=== PATIENT | female | born 1975 | race Caucasian/White ===

== ENCOUNTER 2018-10-07 08:38 | Inpatient (IN) | payer OTHER ==
[2018-10-07] MEDS: SOD CHLORIDE 0.9% 1,000 ML IV ×3 (08:56→15:57)
[2018-10-07] MEDS: SOD CHLORIDE 0.9% 500 ML IV (08:58)
[2018-10-07 09:29] LABS: ADD MAN DIFF? NO
[2018-10-07 09:31] LABS: WHITE BLOOD COUNT 20.4 10^3/ul (4.8-10.8)
[2018-10-07 09:31] LABS: BASOPHIL # 0.1 10^3/ul (0.0-0.1); BASOPHILS % 0.3 % (0.0-2.0); HEMATOCRIT 49.1 % (37.0-47.0); HEMOGLOBIN 14.4 g/dl (12.0-16.0); LYMPHOCYTES # 1.6 10^3/ul (0.8-2.9); LYMPHOCYTES % 7.8 % (15.0-51.0); MEAN CORPUSCULAR HEMOGLOBIN 29.2 pg (29.0-33.0); MEAN CORPUSCULAR HGB CONC 29.3 g/dl (32.0-37.0); MEAN CORPUSCULAR VOLUME 99.6 fl (82.0-101.0); MEAN PLATELET VOLUME 11.3 fl (7.4-10.4); MONOCYTE # 0.5 10^3/ul (0.3-0.9); MONOCYTES % 2.3 % (0.0-11.0); NEUTROPHIL # 18.1 10^3/ul (1.6-7.5); NEUTROPHILS % 88.9 % (39.0-77.0); PLATELET COUNT 431 10^3/UL (140-415); RED BLOOD COUNT 4.93 10^6/ul (4.20-5.40); RED CELL DISTRIBUTION WIDTH 12.4 % (11.5-14.5)
[2018-10-07 09:37] LABS: MODE ROOM AIR; MetHgb Venous 0.3 %; Sample Type Blood venous; Site VENOUS LINE; Venous COHb 0.4 %; Venous Fraction OxyHgb 86.7 %; Venous Oxygen Sat 87.3 mmHG (55.0-75.0); Venous Total Hemglobin 14.5 g/dl
[2018-10-07] MEDS ORDERED: DEXTROSE 10 %/0.45 % NACL 1,000 ML IV (09:38)
[2018-10-07] MEDS ORDERED: NS + KCL 40 MEQ 1,000 ML IV (09:38)
[2018-10-07] MEDS ORDERED: D10/0.45% NACL + KCL 40 MEQ 1,000 ML IV (09:38)
[2018-10-07 09:49] LABS: ANION GAP 27 (5-13); BLOOD UREA NITROGEN 22 mg/dl (7-20); CALCIUM 10.3 mg/dl (8.4-10.2); CHLORIDE 104 mmol/L (97-110); CREATININE 1.03 mg/dl (0.44-1.00); Estimated GFR 59 mL/min (>60); PHOSPHORUS 10.1 mg/dl (2.5-4.9); SODIUM 137 mmol/L (135-144)
[2018-10-07 09:57] LABS: CARBON DIOXIDE 6 mmol/L (21-31); GLUCOSE 774 mg/dl (70-220); POTASSIUM 7.4 mmol/L (3.5-5.1)
[2018-10-07] MEDS ORDERED: DEXTROSE 50% 50 ML SYRINGE IV ×7 (10:00→22:30)
[2018-10-07] MEDS ORDERED: INSULIN REGULAR, HUMAN 100 UNIT in SOD CHLORIDE 0.9% 100 ML IV (10:00)
[2018-10-07] MEDS: LACTATED RINGER'S 590 ML IV (10:22)
[2018-10-07] MEDS ORDERED: ONDANSETRON 4 MG INJ IV (10:30)
[2018-10-07] MEDS ORDERED: ACETAMINOPHEN 325 MG TAB PO (10:30)
[2018-10-07] MEDS: NA BICARBONATE 8.4% 50 ML SYG IV ×2 (10:48→13:50)
[2018-10-07] MEDS: CA CHLORIDE 10% 10 ML SYRINGE IV (10:51)
[2018-10-07 11:15] LABS: ADD UMIC YES; UR ASCORBIC ACID NEGATIVE (NEGATIVE); UR BACTERIA FEW /HPF (NONE SEEN); UR BILIRUBIN (Dip) NEGATIVE (NEGATIVE); UR BLOOD (Dip) 1+ mg/dL (NEGATIVE); UR CLARITY CLEAR (CLEAR); UR COLOR STRAW (YELLOW); UR GLUCOSE (Dip) 3+ mg/dL (NEGATIVE); UR KETONES (Dip) 2+ mg/dL (NEGATIVE); UR LEUKOCYTE ESTERASE (Dip) NEGATIVE Leu/ul (NEGATIVE); UR MUCUS FEW /HPF (NONE SEEN); UR NITRITE (Dip) NEGATIVE (NEGATIVE); UR RBC 0 /HPF (0-5); UR SPECIFIC GRAVITY (Dip) 1.021 (1.003-1.030); UR TOTAL PROTEIN (Dip) NEGATIVE (NEGATIVE); UR UROBILINOGEN (Dip) NEGATIVE (NEGATIVE); UR WBC 1 /HPF (0-5)
[2018-10-07] MEDS: CEFEPIME 1GM/50 ML (PMX) 50 ML IVPB (11:15)
[2018-10-07 11:21] LABS: HEMOGLOBIN A1C 11.3 % (0-5.9)
[2018-10-07] MEDS: ALBUTEROL 0.5% (NEB) 2.5 MG/0.5 ML AMP INH (11:23)
[2018-10-07] MEDS ORDERED: MAGNESIUM HYDROXIDE 30ML CUP PO (11:30)
[2018-10-07] MEDS ORDERED: HYDROCODONE/APAP (5/325) TAB PO (11:30)
[2018-10-07] MEDS ORDERED: DOCUSATE SODIUM 100 MG CAP PO (11:30)
[2018-10-07] MEDS: ACCU-CHEK XX ×13 (11:30→22:30)
[2018-10-07 11:45] LABS: BARBITURATES Negative (NEGATIVE); BENZODIAZEPINES Negative (NEGATIVE); CANNABINOIDS Negative (NEGATIVE); COCAINE Negative (NEGATIVE); OPIATES Negative (NEGATIVE)
[2018-10-07 11:48] LABS: AMPHETAMINE/METHAMPHETAMINE Positive (NEGATIVE)
[2018-10-07] MEDS: VANCOMYCIN 1 GM (PMX) 250 ML IVPB (11:58)
[2018-10-07] MEDS ORDERED: PIPER-TAZO 3.375 GM IV (PMX) 100 ML IVPB (12:00)
[2018-10-07 12:16] LABS: BLOOD UREA NITROGEN 22 mg/dl (7-20); CALCIUM 11.3 mg/dl (8.4-10.2); CHLORIDE 110 mmol/L (97-110); CREATININE 1.06 mg/dl (0.44-1.00); Estimated GFR 57 mL/min (>60); MAGNESIUM 2.8 mg/dl (1.7-2.5); PHOSPHORUS 10.6 mg/dl (2.5-4.9); SODIUM 140 mmol/L (135-144)
[2018-10-07] MEDS: INSULIN REGULAR, HUMAN 100 UNIT in SOD CHLORIDE 0.9% 100 ML IV (12:18)
[2018-10-07 12:29] LABS: MODE ROOM AIR; MetHgb Venous 0.4 %; Sample Type Blood venous; Site VENOUS LINE; Venous COHb 0.3 %; Venous Fraction OxyHgb 92.5 %; Venous Oxygen Sat 93.2 mmHG (55.0-75.0); Venous Total Hemglobin 13.6 g/dl
[2018-10-07 12:30] LABS: ANION GAP 25 (5-13)
[2018-10-07 12:33] LABS: POTASSIUM 7.3 mmol/L (3.5-5.1)
[2018-10-07 12:34] LABS: CARBON DIOXIDE < 5 mmol/L (21-31); GLUCOSE 775 mg/dl (70-220)
[2018-10-07] MEDS: LACTATED RINGER'S 500 ML IV (14:00)
[2018-10-07] MEDS ORDERED: MIDAZOLAM 1 MG/ML 2 ML INJ (14:07)
[2018-10-07] MEDS ORDERED: SODIUM BICARBONATE (IV ADD) 50 MEQ in DEXTROSE 5% 950 ML IV (14:30)
[2018-10-07] MEDS: INSULIN REGULAR, HUMAN 100 UNIT in SOD CHLORIDE 0.9% 99 ML IV (15:09)
[2018-10-07] MEDS: FENTAnyl 1,000 MCG in SOD CHLORIDE 0.9% 80 ML IV ×2 (15:18→23:06)
[2018-10-07] MEDS: PROPOFOL 100 ML IV ×3 (15:32→21:19)
[2018-10-07] MEDS: MIDAZOLAM 1 MG/ML 2 ML INJ IV ×2 (15:33→16:45)
[2018-10-07] MEDS: Please discontinue ALL previous duplicate IV Fluid orders for DKA from ER XX (15:33)
[2018-10-07] MEDS: LACTATED RINGER'S 1,000 ML IV ×2 (15:35→16:53)
[2018-10-07 15:36] LABS: ANION GAP 21 (5-13); BLOOD UREA NITROGEN 25 mg/dl (7-20); CALCIUM 9.9 mg/dl (8.4-10.2); CHLORIDE 115 mmol/L (97-110); CREATININE 1.13 mg/dl (0.44-1.00); Estimated GFR 53 mL/min (>60); MAGNESIUM 2.7 mg/dl (1.7-2.5); PHOSPHORUS 8.2 mg/dl (2.5-4.9); SODIUM 143 mmol/L (135-144)
[2018-10-07 15:40] LABS: LACTIC ACID 4.5 mmol/L (0.5-2.0)
[2018-10-07 15:47] LABS: CARBON DIOXIDE 7 mmol/L (21-31); GLUCOSE 634 mg/dl (70-220)
[2018-10-07 16:06] LABS: THYROID STIMULATING HORMONE 0.852 MIU/L (0.465-4.680)
[2018-10-07] MEDS: SODIUM BICARBONATE (IV ADD) 50 MEQ in DEXTROSE 5% 1,000 ML IV (16:12)
[2018-10-07] MEDS: MIDAZOLAM (DRIP) 50 mg/50 mL 50 ML IV ×2 (16:43→20:47)
[2018-10-07 17:25] LABS: ANION GAP 14 (5-13); BLOOD UREA NITROGEN 24 mg/dl (7-20); CALCIUM 9.5 mg/dl (8.4-10.2); CARBON DIOXIDE 11 mmol/L (21-31); CHLORIDE 118 mmol/L (97-110); CREATININE 1.03 mg/dl (0.44-1.00); Estimated GFR 59 mL/min (>60); MAGNESIUM 2.4 mg/dl (1.7-2.5); PHOSPHORUS 4.2 mg/dl (2.5-4.9); POTASSIUM 5.2 mmol/L (3.5-5.1); SODIUM 143 mmol/L (135-144)
[2018-10-07] MEDS ORDERED: METOPROLOL 5 MG INJ IV (17:30)
[2018-10-07 17:35] LABS: LACTIC ACID 3.8 mmol/L (0.5-2.0)
[2018-10-07 17:39] LABS: GLUCOSE 469 mg/dl (70-220)
[2018-10-07 17:53] LABS: AADO2 Venous 218.4 mmHg; MODE VENT - AC; Site VENOUS LINE
[2018-10-07 18:16] LABS: MODE VENT - BIPHASIC; MetHgb Venous 0.3 %; Sample Type Blood venous; Site VENOUS LINE; Venous COHb 0.3 %; Venous Fraction OxyHgb 93.2 %; Venous Oxygen Sat 93.8 mmHG (55.0-75.0); Venous Total Hemglobin 11.7 g/dl
[2018-10-07] MEDS: NS + KCL 30 MEQ 1,000 ML IV (18:16)
[2018-10-07] MEDS: SODIUM BICARBONATE (IV ADD) 150 MEQ in DEXTROSE 5% 1,000 ML IV (19:02)
[2018-10-07 20:50] LABS: MODE VENT - AC/VC+; MetHgb Venous 0.5 %; Sample Type Blood venous; Site VENOUS LINE; Venous COHb 0.3 %; Venous Fraction OxyHgb 90.4 %; Venous Oxygen Sat 91.1 mmHG (55.0-75.0); Venous Total Hemglobin 11.4 g/dl
[2018-10-07] MEDS: D10/0.45% NACL + KCL 30 MEQ 1,000 ML IV (21:14)
[2018-10-07 21:35] LABS: ANION GAP 4 (5-13); BLOOD UREA NITROGEN 22 mg/dl (7-20); CALCIUM 9.3 mg/dl (8.4-10.2); CARBON DIOXIDE 20 mmol/L (21-31); CHLORIDE 119 mmol/L (97-110); CREATININE 0.83 mg/dl (0.44-1.00); Estimated GFR > 60 mL/min (>60); GLUCOSE 253 mg/dl (70-220); MAGNESIUM 2.2 mg/dl (1.7-2.5); POTASSIUM 4.2 mmol/L (3.5-5.1); SODIUM 143 mmol/L (135-144)
[2018-10-07] MEDS ORDERED: GLUCAGON 1 MG INJ IM (22:30)
[2018-10-07] MEDS ORDERED: GLUCOSE GEL 15 GRAM TUBE PO ×2 (22:30)
[2018-10-07] MEDS ORDERED: GLUCOSE GEL 15 GRAM TUBE BUCCAL (22:30)
[2018-10-07] MEDS: INSULIN HUMAN REGULAR 100 UNIT in SOD CHLORIDE 0.9% 99 ML IV (23:05)
[2018-10-07] MEDS: DEXTROSE 5%-0.45% NACL 1,000 ML IV (23:11)
[2018-10-08] MEDS: ACCU-CHEK XX ×24 (01:04→23:06)
[2018-10-08] MEDS: PROPOFOL 100 ML IV ×4 (02:26→20:00)
[2018-10-08] MEDS: MIDAZOLAM (DRIP) 50 mg/50 mL 50 ML IV (02:34)
[2018-10-08 03:58] LABS: ADD UMIC NO; UR ASCORBIC ACID NEGATIVE (NEGATIVE); UR BILIRUBIN (Dip) NEGATIVE (NEGATIVE); UR BLOOD (Dip) NEGATIVE (NEGATIVE); UR CLARITY SLIGHTLY CLOUDY (CLEAR); UR COLOR YELLOW (YELLOW); UR GLUCOSE (Dip) 3+ mg/dL (NEGATIVE); UR KETONES (Dip) 1+ mg/dL (NEGATIVE); UR LEUKOCYTE ESTERASE (Dip) NEGATIVE Leu/ul (NEGATIVE); UR NITRITE (Dip) NEGATIVE (NEGATIVE); UR RBC 1 /HPF (0-5); UR SPECIFIC GRAVITY (Dip) 1.017 (1.003-1.030); UR TOTAL PROTEIN (Dip) NEGATIVE (NEGATIVE); UR UROBILINOGEN (Dip) NEGATIVE (NEGATIVE); UR WBC 2 /HPF (0-5)
[2018-10-08 04:12] LABS: ADD MAN DIFF? NO
[2018-10-08 04:14] LABS: WHITE BLOOD COUNT 16.4 10^3/ul (4.8-10.8)
[2018-10-08 04:14] LABS: BASOPHILS % 0.2 % (0.0-2.0); EOSINOPHILS % 0.1 % (0.0-7.0); HEMATOCRIT 30.9 % (37.0-47.0); HEMOGLOBIN 10.3 g/dl (12.0-16.0); LYMPHOCYTES # 2.8 10^3/ul (0.8-2.9); LYMPHOCYTES % 17.2 % (15.0-51.0); MEAN CORPUSCULAR HEMOGLOBIN 29.6 pg (29.0-33.0); MEAN CORPUSCULAR HGB CONC 33.3 g/dl (32.0-37.0); MEAN CORPUSCULAR VOLUME 88.8 fl (82.0-101.0); MEAN PLATELET VOLUME 10.5 fl (7.4-10.4); MONOCYTE # 1.4 10^3/ul (0.3-0.9); MONOCYTES % 8.5 % (0.0-11.0); NEUTROPHIL # 12.1 10^3/ul (1.6-7.5); NEUTROPHILS % 73.5 % (39.0-77.0); PLATELET COUNT 249 10^3/UL (140-415); RED BLOOD COUNT 3.48 10^6/ul (4.20-5.40); RED CELL DISTRIBUTION WIDTH 12.2 % (11.5-14.5)
[2018-10-08 04:30] LABS: LACTIC ACID 1.1 mmol/L (0.5-2.0)
[2018-10-08 04:33] LABS: ANION GAP -1 (5-13); BLOOD UREA NITROGEN 21 mg/dl (7-20); CALCIUM 8.9 mg/dl (8.4-10.2); CARBON DIOXIDE 24 mmol/L (21-31); CHLORIDE 122 mmol/L (97-110); CREATININE 0.79 mg/dl (0.44-1.00); Estimated GFR > 60 mL/min (>60); GLUCOSE 162 mg/dl (70-220); PHOSPHORUS 2.5 mg/dl (2.5-4.9); POTASSIUM 3.5 mmol/L (3.5-5.1); SODIUM 145 mmol/L (135-144)
[2018-10-08] MEDS: SODIUM BICARBONATE (IV ADD) 150 MEQ in DEXTROSE 5% 1,000 ML IV (06:20)
[2018-10-08] MEDS: PANTOPRAZOLE 40 MG INJ IV (06:36)
[2018-10-08 08:11] LABS: Allen Test ACCEPTAB; Arterial Base Excess -1.4 mmol/L (-3.0-3); Arterial Blood Gas Oxygen Sat 98.9 mmHG (95.0-98.0); Arterial COHb 0.3 % (0.0-3.0); Arterial Fraction of Oxyhgb 98.3 % (93.0-99.0); Arterial MetHb 0.3 % (0.0-1.5); Arterial pCO2 28.3 mmhg (35-45); MODE VENT - AC/VC+; Site Right Radial
[2018-10-08 09:47] LABS: ANION GAP 4 (5-13); BLOOD UREA NITROGEN 21 mg/dl (7-20); CARBON DIOXIDE 23 mmol/L (21-31); CHLORIDE 118 mmol/L (97-110); CREATININE 0.84 mg/dl (0.44-1.00); Estimated GFR > 60 mL/min (>60); GLUCOSE 120 mg/dl (70-220); MAGNESIUM 2.1 mg/dl (1.7-2.5); PHOSPHORUS 2.7 mg/dl (2.5-4.9); POTASSIUM 3.8 mmol/L (3.5-5.1); SODIUM 145 mmol/L (135-144)
[2018-10-08] MEDS: ENOXAPARIN 40 MG/0.4 ML SYG SC (09:52)
[2018-10-08] MEDS: FENTAnyl 1,000 MCG in SOD CHLORIDE 0.9% 80 ML IV (09:58)
[2018-10-08] MEDS: DEXTROSE 5%-0.45% NACL 1,000 ML IV (12:47)
[2018-10-08] MEDS: ACETAMINOPHEN 650MG/20.3ML CUP PO (17:40)
[2018-10-08] MEDS: DEXTROSE 50% 50 ML SYRINGE IV ×2 (19:42→20:25)
[2018-10-09] MEDS: ACCU-CHEK XX ×24 (00:22→23:51)
[2018-10-09] MEDS: DEXTROSE 5%-0.45% NACL 1,000 ML IV ×2 (01:16→15:09)
[2018-10-09] MEDS: INSULIN HUMAN REGULAR 100 UNIT in SOD CHLORIDE 0.9% 99 ML IV (01:25)
[2018-10-09] MEDS: PROPOFOL 100 ML IV ×3 (01:37→21:56)
[2018-10-09] MEDS: MIDAZOLAM (DRIP) 50 mg/50 mL 50 ML IV (03:04)
[2018-10-09] MEDS: FENTAnyl 1,000 MCG in SOD CHLORIDE 0.9% 80 ML IV ×2 (03:10→18:26)
[2018-10-09 05:29] LABS: ADD MAN DIFF? NO
[2018-10-09 05:41] LABS: BASOPHILS % 0.2 % (0.0-2.0); EOSINOPHILS % 0.2 % (0.0-7.0); HEMOGLOBIN 9.8 g/dl (12.0-16.0); LYMPHOCYTES % 16.4 % (15.0-51.0); MEAN CORPUSCULAR HEMOGLOBIN 29.7 pg (29.0-33.0); MEAN CORPUSCULAR HGB CONC 32.7 g/dl (32.0-37.0); MEAN CORPUSCULAR VOLUME 90.9 fl (82.0-101.0); MEAN PLATELET VOLUME 11.3 fl (7.4-10.4); MONOCYTE # 0.6 10^3/ul (0.3-0.9); MONOCYTES % 4.9 % (0.0-11.0); NEUTROPHIL # 9.5 10^3/ul (1.6-7.5); PLATELET COUNT 164 10^3/UL (140-415)
[2018-10-09 05:41] LABS: WHITE BLOOD COUNT 12.2 10^3/ul (4.8-10.8)
[2018-10-09] MEDS: PANTOPRAZOLE 40 MG INJ IV (06:11)
[2018-10-09 06:16] LABS: ALANINE AMINOTRANSFERASE 189 IU/L (13-69); ALBUMIN 2.4 g/dl (3.3-4.9); ALBUMIN/GLOBULIN RATIO 0.96; ALKALINE PHOSPHATASE 113 IU/L (42-121); ANION GAP 0 (5-13); ASPARTATE AMINO TRANSFERASE 721 IU/L (15-46); BILIRUBIN,INDIRECT 0.2 mg/dl (0-1.1); BILIRUBIN,TOTAL 0.2 mg/dl (0.2-1.3); BLOOD UREA NITROGEN 14 mg/dl (7-20); CALCIUM 8.1 mg/dl (8.4-10.2); CARBON DIOXIDE 26 mmol/L (21-31); CHLORIDE 116 mmol/L (97-110); CREATININE 0.62 mg/dl (0.44-1.00); Estimated GFR > 60 mL/min (>60); GLUCOSE 181 mg/dl (70-220); MAGNESIUM 1.8 mg/dl (1.7-2.5); SODIUM 142 mmol/L (135-144); TOTAL PROTEIN 4.9 g/dl (6.1-8.1)
[2018-10-09 06:41] LABS: POTASSIUM 2.9 mmol/L (3.5-5.1)
[2018-10-09] MEDS: MAGNESIUM OXIDE 400 MG TAB NGT (06:53)
[2018-10-09] MEDS: POTASSIUM CHLORIDE 50 ML IVPB ×2 (06:54→09:31)
[2018-10-09] MEDS: POTASSIUM CHLORIDE 20 MEQ POWDER FOR ORAL SOLN NGT (06:54)
[2018-10-09 07:22] LABS: AADO2 Arterial 53.2 mmHg (7.0-24.0); Allen Test ACCEPTAB; Arterial Base Excess 0.1 mmol/L (-3.0-3); Arterial Blood Gas Oxygen Sat 97.8 mmHG (95.0-98.0); Arterial COHb 0.3 % (0.0-3.0); Arterial Fraction of Oxyhgb 97.2 % (93.0-99.0); Arterial HCO3 25.3 mmol/L (22.0-26.0); Arterial MetHb 0.3 % (0.0-1.5); Arterial pCO2 43.6 mmhg (35-45); MODE VENT - AC; Site Right Radial
[2018-10-09] MEDS: ENOXAPARIN 40 MG/0.4 ML SYG SC (08:40)
[2018-10-09] MEDS ORDERED: DEXMEDETOMIDINE HCL 200 MCG in SOD CHLORIDE 0.9% 48 ML IV (10:30)
[2018-10-09] MEDS: DEXMEDETOMIDINE HCL 200 MCG in SOD CHLORIDE 0.9% 48 ML IV ×2 (11:04→20:35)
[2018-10-09 12:01] LABS: HAAIG REFLEX REFLEX FILED
[2018-10-09 12:22] LABS: BLOOD UREA NITROGEN 12 mg/dl (7-20); CALCIUM 8.1 mg/dl (8.4-10.2); CREATININE 0.54 mg/dl (0.44-1.00); Estimated GFR > 60 mL/min (>60); GLUCOSE 209 mg/dl (70-220); MAGNESIUM 1.8 mg/dl (1.7-2.5); POTASSIUM 4.6 mmol/L (3.5-5.1); SODIUM 139 mmol/L (135-144)
[2018-10-09 12:32] LABS: ANION GAP 4 (5-13); CARBON DIOXIDE 23 mmol/L (21-31); CHLORIDE 112 mmol/L (97-110)
[2018-10-09 12:53] LABS: HEPATITIS B SURFACE ANTIGEN NEGATIVE (NEGATIVE)
[2018-10-09 13:11] LABS: HEPATITIS B CORE ANTIBODY NEGATIVE (NEGATIVE); HEPATITIS C VIRAL ANTIBODY NEGATIVE (NEGATIVE)
[2018-10-09] MEDS: ACETAMINOPHEN 650MG/20.3ML CUP PO (15:58)
[2018-10-09] MEDS ORDERED: VANCOMYCIN IV PER PHARMACY XX (16:00)
[2018-10-09] MEDS: MAGNESIUM SULFATE 2 GM/50 ML 50 ML IVPB (16:12)
[2018-10-09] MEDS: PIPER-TAZO 3.375 GM IV (PMX) 100 ML IVPB ×2 (16:17→21:56)
[2018-10-09] MEDS: VANCOMYCIN HCL 1.25 GM in SOD CHLORIDE 0.9% 250 ML IVPB (17:52)
[2018-10-09] MEDS: BALSAM PERU/CASTOR OIL 60 GM TUBE TOP (21:00)
[2018-10-10] MEDS: ACCU-CHEK XX ×24 (00:52→23:51)
[2018-10-10] MEDS: DEXMEDETOMIDINE HCL 200 MCG in SOD CHLORIDE 0.9% 48 ML IV ×3 (00:59→19:49)
[2018-10-10] MEDS: DEXTROSE 5%-0.45% NACL 1,000 ML IV ×2 (03:22→17:15)
[2018-10-10] MEDS: PANTOPRAZOLE 40 MG INJ IV (05:23)
[2018-10-10] MEDS: FENTAnyl 1,000 MCG in SOD CHLORIDE 0.9% 80 ML IV ×2 (05:23→23:50)
[2018-10-10] MEDS: VANCOMYCIN HCL 1.25 GM in SOD CHLORIDE 0.9% 250 ML IVPB ×2 (05:23→17:15)
[2018-10-10 05:29] LABS: ADD MAN DIFF? NO
[2018-10-10 05:37] LABS: WHITE BLOOD COUNT 8.8 10^3/ul (4.8-10.8)
[2018-10-10 05:37] LABS: BASOPHILS % 0.2 % (0.0-2.0); EOSINOPHILS % 0.1 % (0.0-7.0); HEMATOCRIT 29.4 % (37.0-47.0); HEMOGLOBIN 9.4 g/dl (12.0-16.0); LYMPHOCYTES # 1.7 10^3/ul (0.8-2.9); LYMPHOCYTES % 19.4 % (15.0-51.0); MEAN CORPUSCULAR HEMOGLOBIN 29.7 pg (29.0-33.0); MEAN CORPUSCULAR VOLUME 92.7 fl (82.0-101.0); MEAN PLATELET VOLUME 11.4 fl (7.4-10.4); MONOCYTE # 0.5 10^3/ul (0.3-0.9); MONOCYTES % 6.1 % (0.0-11.0); NEUTROPHIL # 6.4 10^3/ul (1.6-7.5); NEUTROPHILS % 73.5 % (39.0-77.0); PLATELET COUNT 113 10^3/UL (140-415); RED BLOOD COUNT 3.17 10^6/ul (4.20-5.40); RED CELL DISTRIBUTION WIDTH 12.8 % (11.5-14.5)
[2018-10-10] MEDS: INSULIN HUMAN REGULAR 100 UNIT in SOD CHLORIDE 0.9% 99 ML IV (05:47)
[2018-10-10 05:50] LABS: ALANINE AMINOTRANSFERASE 844 IU/L (13-69); ALBUMIN 2.5 g/dl (3.3-4.9); ALBUMIN/GLOBULIN RATIO 0.92; ALKALINE PHOSPHATASE 182 IU/L (42-121); ANION GAP 5 (5-13); BILIRUBIN,INDIRECT 0.7 mg/dl (0-1.1); BILIRUBIN,TOTAL 1.4 mg/dl (0.2-1.3); BLOOD UREA NITROGEN 16 mg/dl (7-20); CALCIUM 7.8 mg/dl (8.4-10.2); CARBON DIOXIDE 27 mmol/L (21-31); CHLORIDE 108 mmol/L (97-110); CREATININE 0.65 mg/dl (0.44-1.00); Estimated GFR > 60 mL/min (>60); GLUCOSE 130 mg/dl (70-220); MAGNESIUM 2.8 mg/dl (1.7-2.5); POTASSIUM 3.9 mmol/L (3.5-5.1); SODIUM 140 mmol/L (135-144); TOTAL PROTEIN 5.2 g/dl (6.1-8.1)
[2018-10-10 06:59] LABS: ASPARTATE AMINO TRANSFERASE 1899 IU/L (15-46)
[2018-10-10] MEDS: PIPER-TAZO 3.375 GM IV (PMX) 100 ML IVPB ×3 (07:55→21:01)
[2018-10-10] MEDS: ENOXAPARIN 40 MG/0.4 ML SYG SC (08:54)
[2018-10-10] MEDS: BALSAM PERU/CASTOR OIL 60 GM TUBE TOP ×2 (08:54→20:57)
[2018-10-10] MEDS: LACTATED RINGER'S 500 ML IV (15:01)
[2018-10-11] MEDS: INSULIN HUMAN REGULAR 100 UNIT in SOD CHLORIDE 0.9% 99 ML IV (00:01)
[2018-10-11] MEDS: ACCU-CHEK XX ×15 (00:51→15:14)
[2018-10-11] MEDS: DEXMEDETOMIDINE HCL 200 MCG in SOD CHLORIDE 0.9% 48 ML IV ×2 (01:39→08:05)
[2018-10-11] MEDS: DEXTROSE 5%-0.45% NACL 1,000 ML IV ×3 (01:39→22:29)
[2018-10-11 04:13] LABS: ADD MAN DIFF? NO
[2018-10-11 04:16] LABS: BASOPHILS % 0.3 % (0.0-2.0); EOSINOPHILS # 0.1 10^3/ul (0.0-0.5); EOSINOPHILS % 0.8 % (0.0-7.0); HEMATOCRIT 27.9 % (37.0-47.0); HEMOGLOBIN 8.9 g/dl (12.0-16.0); LYMPHOCYTES % 19.9 % (15.0-51.0); MEAN CORPUSCULAR HEMOGLOBIN 29.5 pg (29.0-33.0); MEAN CORPUSCULAR HGB CONC 31.9 g/dl (32.0-37.0); MEAN CORPUSCULAR VOLUME 92.4 fl (82.0-101.0); MEAN PLATELET VOLUME 12.1 fl (7.4-10.4); MONOCYTES % 9.9 % (0.0-11.0); NEUTROPHIL # 6.7 10^3/ul (1.6-7.5); NEUTROPHILS % 68.6 % (39.0-77.0); PLATELET COUNT 108 10^3/UL (140-415); RED BLOOD COUNT 3.02 10^6/ul (4.20-5.40)
[2018-10-11 04:16] LABS: WHITE BLOOD COUNT 9.8 10^3/ul (4.8-10.8)
[2018-10-11 04:34] LABS: INR 0.87; PROTIME 11.9 Sec (11.9-14.9); PT RATIO 0.9
[2018-10-11 04:45] LABS: ALANINE AMINOTRANSFERASE 567 IU/L (13-69); ALBUMIN 2.3 g/dl (3.3-4.9); ALBUMIN/GLOBULIN RATIO 0.92; ALKALINE PHOSPHATASE 192 IU/L (42-121); ANION GAP 3 (5-13); ASPARTATE AMINO TRANSFERASE 731 IU/L (15-46); BILIRUBIN,INDIRECT 0.4 mg/dl (0-1.1); BILIRUBIN,TOTAL 0.4 mg/dl (0.2-1.3); BLOOD UREA NITROGEN 17 mg/dl (7-20); CALCIUM 7.2 mg/dl (8.4-10.2); CARBON DIOXIDE 25 mmol/L (21-31); CHLORIDE 108 mmol/L (97-110); CREATININE 0.57 mg/dl (0.44-1.00); Estimated GFR > 60 mL/min (>60); GLUCOSE 148 mg/dl (70-220); MAGNESIUM 2.4 mg/dl (1.7-2.5); POTASSIUM 3.3 mmol/L (3.5-5.1); SODIUM 136 mmol/L (135-144); TOTAL PROTEIN 4.8 g/dl (6.1-8.1)
[2018-10-11 04:56] LABS: VANCOMYCIN,TROUGH 8.6 ug/ml (10.0-20.0)
[2018-10-11] MEDS: VANCOMYCIN HCL 1.5 GM in SOD CHLORIDE 0.9% 250 ML IVPB ×2 (05:12→17:37)
[2018-10-11] MEDS: PIPER-TAZO 3.375 GM IV (PMX) 100 ML IVPB ×3 (05:13→21:26)
[2018-10-11] MEDS: PANTOPRAZOLE 40 MG INJ IV (05:14)
[2018-10-11] MEDS: BALSAM PERU/CASTOR OIL 60 GM TUBE TOP ×2 (08:42→21:26)
[2018-10-11] MEDS: ENOXAPARIN 40 MG/0.4 ML SYG SC (08:47)
[2018-10-11 10:00] LABS: AADO2 Arterial 61.8 mmHg (7.0-24.0); Allen Test ACCEPTAB; Arterial Base Excess -1.6 mmol/L (-3.0-3); Arterial Blood Gas Oxygen Sat 98.2 mmHG (95.0-98.0); Arterial COHb 0.3 % (0.0-3.0); Arterial Fraction of Oxyhgb 97.7 % (93.0-99.0); Arterial HCO3 21.4 mmol/L (22.0-26.0); Arterial MetHb 0.2 % (0.0-1.5); Arterial pCO2 30.4 mmhg (35-45); Blood Gas PS 10; MODE VENT - CPAP; Site Right Radial
[2018-10-11] MEDS: INSULIN ASPART [NOVOLOG] 3 ML PEN SC ×2 (11:30→21:36)
[2018-10-11] MEDS: INSULIN GLARGINE [LANTus] (100 UNITS/ML) SYG SC ×2 (12:42→21:27)
[2018-10-11] MEDS: ACETAMINOPHEN 650MG/20.3ML CUP PO (17:36)
[2018-10-11] MEDS ORDERED: DEXTROSE 50% 50 ML SYRINGE IV ×2 (18:00)
[2018-10-11] MEDS ORDERED: GLUCOSE GEL 15 GRAM TUBE PO ×2 (18:00)
[2018-10-11] MEDS ORDERED: GLUCOSE GEL 15 GRAM TUBE BUCCAL (18:00)
[2018-10-11] MEDS ORDERED: GLUCAGON 1 MG INJ IM (18:00)
[2018-10-11] MEDS ORDERED: ALBUTEROL/IPRATROPIUM (NEB) 3 ML AMP HHN ×3 (22:48→23:30)
[2018-10-12] MEDS: INSULIN ASPART [NOVOLOG] 3 ML PEN SC ×7 (00:36→22:29)
[2018-10-12] MEDS: ONDANSETRON 4 MG INJ IV (01:02)
[2018-10-12] MEDS: DEXTROSE 5%-0.45% NACL 1,000 ML IV (02:29)
[2018-10-12] MEDS: PANTOPRAZOLE 40 MG INJ IV (05:11)
[2018-10-12] MEDS: PIPER-TAZO 3.375 GM IV (PMX) 100 ML IVPB (05:12)
[2018-10-12 05:29] LABS: ADD MAN DIFF? NO
[2018-10-12 05:42] LABS: ABNORMAL IP MESSAGE 1; BASOPHILS % 0.2 % (0.0-2.0); EOSINOPHILS # 0.1 10^3/ul (0.0-0.5); EOSINOPHILS % 0.5 % (0.0-7.0); HEMATOCRIT 28.4 % (37.0-47.0); LYMPHOCYTES # 1.4 10^3/ul (0.8-2.9); LYMPHOCYTES % 10.9 % (15.0-51.0); MEAN CORPUSCULAR HEMOGLOBIN 29.2 pg (29.0-33.0); MEAN CORPUSCULAR HGB CONC 31.7 g/dl (32.0-37.0); MEAN CORPUSCULAR VOLUME 92.2 fl (82.0-101.0); MEAN PLATELET VOLUME 12.4 fl (7.4-10.4); MONOCYTE # 1.5 10^3/ul (0.3-0.9); MONOCYTES % 11.4 % (0.0-11.0); NEUTROPHIL # 10.1 10^3/ul (1.6-7.5); NEUTROPHILS % 76.2 % (39.0-77.0); PLATELET COUNT 193 10^3/UL (140-415); RED BLOOD COUNT 3.08 10^6/ul (4.20-5.40); RED CELL DISTRIBUTION WIDTH 12.9 % (11.5-14.5)
[2018-10-12 05:42] LABS: WHITE BLOOD COUNT 13.2 10^3/ul (4.8-10.8)
[2018-10-12] MEDS: VANCOMYCIN HCL 1.5 GM in SOD CHLORIDE 0.9% 250 ML IVPB (05:50)
[2018-10-12 05:52] LABS: ANION GAP 3 (5-13); BLOOD UREA NITROGEN 11 mg/dl (7-20); CALCIUM 7.8 mg/dl (8.4-10.2); CARBON DIOXIDE 28 mmol/L (21-31); CHLORIDE 111 mmol/L (97-110); CREATININE 0.69 mg/dl (0.44-1.00); Estimated GFR > 60 mL/min (>60); GLUCOSE 186 mg/dl (70-220); MAGNESIUM 2.2 mg/dl (1.7-2.5); PHOSPHORUS 2.7 mg/dl (2.5-4.9); POTASSIUM 3.3 mmol/L (3.5-5.1); SODIUM 142 mmol/L (135-144)
[2018-10-12 05:54] LABS: POSITIVE DIFF @See below
[2018-10-12] MEDS: ACETAMINOPHEN 650MG/20.3ML CUP PO ×2 (07:09→17:48)
[2018-10-12] MEDS: GUAIFENESIN/CODEINE 5ML CUP PO (07:09)
[2018-10-12] MEDS: INSULIN GLARGINE [LANTus] (100 UNITS/ML) SYG SC ×2 (08:52→21:13)
[2018-10-12] MEDS: BALSAM PERU/CASTOR OIL 60 GM TUBE TOP ×2 (08:53→21:00)
[2018-10-12] MEDS: ENOXAPARIN 40 MG/0.4 ML SYG SC (08:53)
[2018-10-12] MEDS ORDERED: POTASSIUM CHLORIDE (SR) 20 MEQ TAB PO (10:22)
[2018-10-12] MEDS: POTASSIUM CHLORIDE (SR) 20 MEQ TAB PO (10:41)
[2018-10-12] MEDS ORDERED: FLUCONAZOLE 100 MG TAB PO (11:30)
[2018-10-12] MEDS: VORICONAZOLE 200 MG TAB PO ×2 (12:21→21:11)
[2018-10-12 12:26] LABS: ALANINE AMINOTRANSFERASE 423 IU/L (13-69); ALBUMIN 2.2 g/dl (3.3-4.9); ALKALINE PHOSPHATASE 190 IU/L (42-121); ASPARTATE AMINO TRANSFERASE 242 IU/L (15-46); BILIRUBIN,INDIRECT 0.3 mg/dl (0-1.1); BILIRUBIN,TOTAL 0.3 mg/dl (0.2-1.3); TOTAL PROTEIN 4.5 g/dl (6.1-8.1)
[2018-10-13] MEDS: ACCU-CHEK XX (02:00)
[2018-10-13] MEDS: CEPASTAT LOZENGE MT ×2 (02:43→09:07)
[2018-10-13] MEDS: PANTOPRAZOLE 40 MG INJ IV (06:39)
[2018-10-13] MEDS: INSULIN ASPART [NOVOLOG] 3 ML PEN SC ×7 (07:50→21:00)
[2018-10-13] MEDS: INSULIN GLARGINE [LANTus] (100 UNITS/ML) SYG SC ×2 (08:45→21:12)
[2018-10-13] MEDS: VORICONAZOLE 200 MG TAB PO ×2 (08:46→21:10)
[2018-10-13] MEDS: ENOXAPARIN 40 MG/0.4 ML SYG SC (08:52)
[2018-10-13] MEDS: BALSAM PERU/CASTOR OIL 60 GM TUBE TOP ×2 (09:00→21:10)
[2018-10-13] MEDS: KETOROLAC 30 MG INJ IV (12:09)
[2018-10-14] MEDS: ACCU-CHEK XX (02:00)
[2018-10-14] MEDS: GUAIFENESIN/CODEINE 5ML CUP PO (03:41)
[2018-10-14] MEDS: KETOROLAC 30 MG INJ IV ×3 (03:41→17:05)
[2018-10-14 05:49] LABS: ALANINE AMINOTRANSFERASE 190 IU/L (13-69); ALBUMIN 2.5 g/dl (3.3-4.9); ALBUMIN/GLOBULIN RATIO 0.86; ALKALINE PHOSPHATASE 172 IU/L (42-121); ANION GAP 8 (5-13); ASPARTATE AMINO TRANSFERASE 74 IU/L (15-46); BLOOD UREA NITROGEN 10 mg/dl (7-20); CALCIUM 8.1 mg/dl (8.4-10.2); CARBON DIOXIDE 29 mmol/L (21-31); CHLORIDE 103 mmol/L (97-110); Estimated GFR > 60 mL/min (>60); GLUCOSE 147 mg/dl (70-220); POTASSIUM 3.2 mmol/L (3.5-5.1); SODIUM 140 mmol/L (135-144); TOTAL PROTEIN 5.4 g/dl (6.1-8.1)
[2018-10-14] MEDS: PANTOPRAZOLE 40 MG INJ IV (06:56)
[2018-10-14] MEDS: INSULIN ASPART [NOVOLOG] 3 ML PEN SC ×6 (07:50→17:46)
[2018-10-14] MEDS: VORICONAZOLE 200 MG TAB PO (08:20)
[2018-10-14] MEDS: INSULIN GLARGINE [LANTus] (100 UNITS/ML) SYG SC (08:22)
[2018-10-14] MEDS: ENOXAPARIN 40 MG/0.4 ML SYG SC (08:22)
[2018-10-14] MEDS: BALSAM PERU/CASTOR OIL 60 GM TUBE TOP (08:22)
[2018-10-14] MEDS: POTASSIUM CHLORIDE 100 ML IVPB ×2 (11:26→14:43)
[2018-10-14] MEDS: MAGNESIUM SULFATE 4 GM/100 ML 100 ML IVPB (13:49)
== END 2018-10-14 18:20 | disposition home or self-care (01) | DRG 637 ==
LOC: MS1 10-12 16:15 → E/R 08:38 → ICU 10:29
PROVIDERS: Internal Medicine
PROC: 5A1945Z Respiratory Ventilation, 24-96 Consecutive Hours (ICD-10-PCS; principal; 2018-10-07)
PROC: 0BH17EZ Insertion of Endotracheal Airway into Trachea, Via Natural or Artificial Opening (ICD-10-PCS; 2018-10-07)
PROC: 02HV33Z Insertion of Infusion Device into Superior Vena Cava, Percutaneous Approach (ICD-10-PCS; 2018-10-07)
DX: E10.10 Type 1 diabetes mellitus with ketoacidosis without coma (principal); J96.01 Acute respiratory failure with hypoxia; G92 Toxic encephalopathy; N17.9 Acute kidney failure, unspecified; E87.5 Hyperkalemia; E87.6 Hypokalemia; E83.41 Hypermagnesemia; E10.42 Type 1 diabetes mellitus with diabetic polyneuropathy; F90.9 Attention-deficit hyperactivity disorder, unspecified type; F15.10 Other stimulant abuse, uncomplicated; K76.0 Fatty (change of) liver, not elsewhere classified; R74.0 Nonspecific elevation of levels of transaminase and lactic acid dehydrogenase [LDH]; Z91.14 Patient's other noncompliance with medication regimen; Z87.891 Personal history of nicotine dependence
CPT/HCPCS: 31500; 36415; 36600; 71045; 76705; 80048; 80053; 80076; 80202; 80307; 81001; 81003; 82803; 82962; 83036; 83605; 83735; 84100; 84443; 84703; 85025; 85610; 86704; 86709; 86803; 87040; 87045; 87081; 87086; 87340; 92526; 92610; 93005; 93306; 94002; 94003; 94664; 94770; 96360; 97110; 97116; 97163; 99291-25